=== PATIENT | female | born 1975 | race African-American/Black ===

== ENCOUNTER 2020-06-14 16:45 | Emergency (ER) | payer OTHER ==
[~2020-06-14] VITALS: Ht 170.2 cm; Wt 73.0 kg
[2020-06-14] MEDS ORDERED: ACETAMINOPHEN 325MG TABLET PO ONE (17:00)
[2020-06-14 18:42] LABS: BASOPHILS % 0.9 % (0.0-2.0); EOSINOPHILS % 0.2 % (0.0-5.0); HEMATOCRIT. 37.2 % (36.0-48.0); LYMPHOCYTES % 18.4 % (20.0-50.0); MEAN CORPUSCULAR HEMOGLOBIN 24.5 pg (28.0-32.0); MEAN CORPUSCULAR VOLUME 76.1 fL (81.0-99.0); MEAN PLATELET VOLUME 8.8 fl (7.4-10.4); MONOCYTES % 6.3 % (2.0-8.0); NEUTROPHILS % 74.2 % (40.0-76.0); PLATELET 283 x1000/uL (130-400); RED BLOOD CELL COUNT 4.89 mill/uL (4.2-5.4); RED CELL DISTRIBUTION WIDTH 15.5 % (11.6-14.6)
[2020-06-14 18:48] LABS: CHLORIDE 107 mEq/L (98-107)
[2020-06-14 22:47] VITALS: BP 148/84
== END 2020-06-14 22:53 | disposition home or self-care (01) ==
LOC: ER 16:45 → CANBEDREQ 20:10 → ER 22:53
DX: S39.82XA Other specified injuries of lower back, initial encounter (principal); S09.8XXA Other specified injuries of head, initial encounter; R03.0 Elevated blood-pressure reading, without diagnosis of hypertension; F99 Mental disorder, not otherwise specified; W06.XXXA Fall from bed, initial encounter; Y93.89 Activity, other specified; Y92.092 Bedroom in other non-institutional residence as the place of occurrence of the external cause
CPT/HCPCS: 36415; 71045; 80053; 85025; 99285